=== PATIENT | female | born 1960 | race Two or more races ===

== ENCOUNTER 2022-02-10 04:35 | Day surgery (SDC) | payer OTHER ==
[~2022-02-10] VITALS: Ht 170.2 cm; Wt 63.5 kg
[~2022-02-10 04:35] MED LIST: PROZAC10 MG; XANAX1 MG
== END 2022-02-10 15:35 | disposition home or self-care (01) ==
LOC: CIR.AMB 04:35
PROVIDERS: ATTEND Specialist
DX: D49.2 Neoplasm of unspecified behavior of bone, soft tissue, and skin (principal); Z20.822 Contact with and (suspected) exposure to COVID-19; Z86.16 Personal history of COVID-19; Z87.891 Personal history of nicotine dependence